=== PATIENT | female | born 1935 | race Caucasian/White ===

== ENCOUNTER 2022-08-29 12:10 | Observation (INO) ==
[2022-08-29] MEDS ORDERED: HYDROmorphone 1 MG/1 ML SYRINGE IV STA (13:22)
[2022-08-29] MEDS ORDERED: ONDANSETRON 4 MG/2 ML VIAL IV STA (13:22)
[2022-08-29 14:13] LABS: Basophils % 0.2 % (0.0-0.8); Eosinophils # 0.1 10*3/uL (0.0-0.87); Eosinophils % 0.7 % (0.00-10.9); Hematocrit 37.9 VOL% (35.7-47.0); Hemoglobin 12.7 GM/DL (12.0-16.0); Immature Granulocytes % 0.6 %; Immature Granulocytes Absolute 0.07 #; Lymphocytes # 1.2 10*3/uL (1.4-4.0); Lymphocytes % 9.6 % (21.3-54.2); Mean Corpuscular HGB Conc 33.5 GM/DL (32-36); Mean Corpuscular Volume 91.8 FL (87-102); Monocytes # 0.5 10*3/uL (0.11-0.8); Neutrophils % 84.9 % (38.7-73.9); Platelet Count 199 T/CUMM (130-400); Red Blood Count 4.13 MC/CUMM (3.8-5.5); Red Cell Distribution Width 13.1 % (9.3-17.3)
[2022-08-29] MEDS ORDERED: GLUCAGON 1 MG VIAL IM PRN (14:21)
[2022-08-29] MEDS ORDERED: ONDANSETRON 4 MG/2 ML VIAL IV PRN (14:21)
[2022-08-29] MEDS ORDERED: ACETAMINOPHEN 325 MG TABLET PO PRN (14:21)
[2022-08-29 14:24] LABS: PT Patient Result 10.9 SECS (10.1-12.1); Partial Thromboplastin Time 25.3 SECS (23.7-32.9)
[2022-08-29] MEDS ORDERED: DEXTROSE 10% 250 ML BAG IV PRN (14:27)
[2022-08-29 14:32] LABS: Bilirubin,Total 1.2 MG/DL (0.20-1.00); Calcium 9.2 MG/DL (8.5-10.1); Osmolality,Calculated 287.3 MOS/KG (273-304); Potassium 4.2 MMOL/L (3.5-5.1); Total Protein 6.9 G/DL (6.4-8.2)
[2022-08-29] MEDS ORDERED: hydrALAZINE 20 MG/1 ML VIAL IV PRN (14:36)
[2022-08-29] MEDS: ENOXAPARIN 40 MG/0.4 ML SYRINGE SUBCUT SCH (16:02)
[2022-08-29] MEDS: INSULIN LISPRO 100 UNIT/ML SUBCUT SCH ×2 (16:43→21:28)
[2022-08-29] MEDS ORDERED: carvediloL 3.125 MG TABLET PO SCH (21:00)
[2022-08-29] MEDS: GABAPENTIN 400 MG CAPSULE PO SCH (21:25)
[2022-08-30 05:32] LABS: Basophils % 0.4 % (0.0-0.8); Eosinophils # 0.2 10*3/uL (0.0-0.87); Eosinophils % 3.9 % (0.00-10.9); Hematocrit 33.8 VOL% (35.7-47.0); Immature Granulocytes % 0.2 %; Immature Granulocytes Absolute 0.01 #; Lymphocytes # 1.4 10*3/uL (1.4-4.0); Lymphocytes % 26.5 % (21.3-54.2); Mean Corpuscular HGB Conc 32.5 GM/DL (32-36); Mean Corpuscular Volume 92.9 FL (87-102); Monocytes # 0.3 10*3/uL (0.11-0.8); Monocytes % 6.2 % (1.7-12.7); Neutrophils % 62.8 % (38.7-73.9); Platelet Count 166 T/CUMM (130-400); Red Blood Count 3.64 MC/CUMM (3.8-5.5); Red Cell Distribution Width 13.2 % (9.3-17.3); White Blood Count 5.4 T/CUMM (4-12)
[2022-08-30 06:09] LABS: Albumin 3.1 G/DL (3.4-5.0); Bilirubin,Total 1.2 MG/DL (0.20-1.00); Calcium 8.9 MG/DL (8.5-10.1); Osmolality,Calculated 288.8 MOS/KG (273-304); Potassium 3.9 MMOL/L (3.5-5.1); Risk Ratio 2.15; Thyroid Stimulating Hormone 3.66 uIU/ml (0.358-3.74); Total Protein 6.5 G/DL (6.4-8.2); VLDL Cholesterol 23.2 MG/DL
[2022-08-30] MEDS ORDERED: carvediloL 3.125 MG TABLET PO SCH (08:00)
[2022-08-30] MEDS: INSULIN LISPRO 100 UNIT/ML SUBCUT SCH ×2 (08:34→12:32)
[2022-08-30] MEDS: GABAPENTIN 400 MG CAPSULE PO SCH (08:35)
[2022-08-30] MEDS ORDERED: PANTOPRAZOLE 40 MG TABLET PO SCH (09:00)
[2022-08-30] MEDS ORDERED: MULTIVITAMIN (CENTRUM) TABLET PO SCH (09:00)
[2022-08-30] MEDS ORDERED: ATORVASTATIN 40 MG TABLET PO SCH ×2 (09:00→21:00)
[2022-08-30] MEDS ORDERED: MAGNESIUM OXIDE 400 MG TABLET PO SCH (09:00)
[2022-08-30] MEDS ORDERED: OMEGA 3 ACID ETHYL ESTERS 1 GM CAPSULE PO SCH (09:00)
[2022-08-30] MEDS ORDERED: CHOLECALCIFEROL 1,000 UNIT TABLET PO SCH (09:00)
[2022-08-30] MEDS ORDERED: amLODIPine 5 MG TABLET PO SCH (09:00)
[2022-08-30 15:26] VITALS: BP 128/41
[2022-08-30] MEDS: ENOXAPARIN 40 MG/0.4 ML SYRINGE SUBCUT SCH (16:20)
[2022-08-31] MEDS ORDERED: GLIMEPIRIDE 2 MG TABLET PO SCH (08:00)
== END 2022-08-30 15:49 ==
LOC: N.ED 12:10 → N.EDINP 12:10 → N.3E 16:16
PROVIDERS: ADMIT Internal Medicine; ATTEND Internal Medicine